=== PATIENT | male | born 1945 | race Caucasian/White ===

== ENCOUNTER 2018-01-18 14:28 | Emergency (ER) | payer MEDICARE ==
--- OUTSIDE RECORDS SUMMARY | 2018-01-18 14:34 | XMS REPORT ---
:1945 External Reference #:[id number] Author Organization Amari Mclaughlin M.D., [facility] Address [address] [address] [place] [address] Phone [phone] Care Team Providers Name Role Phone Azael Brooks MD Care Team Information [employer] Up Mechanic Unavailable Azael Brooks MD Primary Care Physician Unavailable Payers Type Date Identification Numbers Payment Provider Subscriber Commercial Effective: Policy Number: BS Medicare Brandon Hopell 2013 [id number] PayID: [id number] [address] [address] [place] [address] Commercial Policy Number: [id number] Medicare Brandon [employer] Number: [id number] [address] [address] PayID: [id number] [place] [address] Problems Date Description Provider Status Onset: 11/17/2016 Excess skin of eyelid Amari Mclaughlin M.D. Active Onset: 11/18/2015 Venous retinal branch occlusion Amari Mclaughlin M.D. Active Onset: 11/12/2014 Vitreous degeneration Ravindra Alatorre O.D. Active Onset: 08/05/2014 Incipient senile cataract Amari Mclaughlin M.D. Active Onset: 07/31/2013 Retinal vascular occlusion Amari Mclaughlin M.D. Active Family History Date Family Member(s) Problem(s) Comments Father Cancer Mother Noncontributory Social History Type Date Description Comments Smoking Patient has never smoked Allergies, Adverse Reactions, Alerts Date Description Reaction Status Severity Comments 07/31/2013 Sulfa active 09/09/2013 Sulfa Antibiotics active Medications Medication Date Status Form Strength Qnty SIG Indications Ordering Provider Lisinopril Active Tablets Unknown 00 Pravastatin Active Tablets Unknown 00 Glucosamine 00/00/00 Active Tablets Unknown Chondroitin 00 Alprazolam Active Tablets Unknown 00 Aspir-[address] 81mg once Unknown 00 per day po Ibuprofen Active Capsules Unknown Multi Complete Active Capsules Unknown 00 Vital Signs Date Vital Result Comment 11/19/2017 Intraocular Pressure Right Eye 15 mmHg Intraocular Pressure Left Eye 15 mmHg 11/17/2016 Intraocular Pressure Right Eye 15 mmHg Intraocular Pressure Left Eye 16 mmHg 11/18/2015 Intraocular Pressure Right Eye 18 mmHg Intraocular Pressure Left Eye 18 mmHg 08/05/2014 Intraocular Pressure Right Eye 12 mmHg Intraocular Pressure Left Eye 14 mmHg 07/31/2013 Intraocular Pressure Right Eye 18 mmHg Intraocular Pressure Left Eye 18 mmHg Results Description No Information Procedures Date CPT Code Description Status 12/20/2017 34871 Fundus Photography W/Interpretation & Report Completed 12/20/2017 24075 Ophthalmoscopy Subsequent Completed 12/20/2017 91993 Eye Exam Est Intermediate Completed 12/17/2017 44389 Visual Field Exam Extended, Unilateral Or Bilateral Completed 11/19/2017 66826 Refraction Completed 11/19/2017 27922 Eye Exam Est Intermediate Completed 11/17/2016 10850 Ophthalmoscopy Subsequent Completed 11/17/2016 63875 Eye Exam Est Intermediate Completed 11/18/2015 61318 Fundus Photography W/Interpretation & Report Completed 11/18/2015 75542 Eye Exam Est Comprehensive Completed 11/26/2014 84191 Ophthalmoscopy Subsequent Completed 11/26/2014 35082 Eye Exam Est Intermediate Completed 11/12/2014 03470 Ophthalmoscopy Initial Completed 11/12/2014 89729 Eye Exam Est Intermediate Completed 08/05/2014 33729 Eye Exam Est Comprehensive Completed 08/05/2014 31744 Oct Retina Completed 08/05/2014 74148 Ophthalmoscopy Subsequent Completed 07/31/2013 72611 Fundus Photography W/Interpretation & Report Completed 07/31/2013 59370 Ophthalmoscopy Subsequent Completed 07/31/2013 10563 Eye Exam Est Comprehensive Completed 07/10/2011 64349 Fundus Photography W/Interpretation & Report Completed 07/10/2011 57844 Ophthalmoscopy Subsequent Completed 07/10/2011 89479 Eye Exam Est Comprehensive Completed 12/09/2010 61898 Eye Exam Est Intermediate Completed 12/09/2010 33322 Ophthalmoscopy Initial Completed 12/09/2010 79988 Fundus Photography W/Interpretation & Report Completed 07/08/2010 49619 Eye Exam Est Comprehensive Completed 03/18/2008 89582 Eye Exam Est Comprehensive Completed 02/27/2007 41142 Ophthalmoscopy Subsequent Completed 02/27/2007 82917 Eye Exam Est Comprehensive Completed 02/05/2006 10858 Ophthalmoscopy Initial Completed 02/05/2006 85493 Refraction Completed 02/05/2006 85839 Eye Exam New Comprehensive Completed Encounters Type Date Location Provider CPT E/M Dx Office Visit 12/17/2017 10:45a [place] [address] H02.831 H02.834 Plan of Care 12/20/2017 - Amari Mclaughlin M.D.H02.831 Dermatochalasis of right upper yaycciL43.834 Dermatochalasis of left upper yqxslsM56.8312 Tributary (branch) retinal vein occlusion, right eye, qvxuncL50.093 Other age-related incipient cataract, aiijiukkiG97.813 Vitreous degeneration, hexjthtmiW37.372 Puckering of macula, left eyeFollow up:1 yr
[2018-01-18 14:43] VITALS: BP 159/77
--- NOTE | 2018-01-18 15:34 | RAD ---
Indication: LEFT hip pain chronic increasing over the last 2 days. Fall onto LEFT hip 2 days ago. Comparison: March 22, 2017 CT. Technique: Supine AP pelvis and AP and frog-leg lateral views LEFT hip. Report: The LEFT hip is normally located. No proximal LEFT femur or pelvic fracture or pelvic joint diastases. Mild bilateral axial joint space narrowing of the hips. Calcific tendinopathy at the LEFT greater than RIGHT gluteus sherif insertion sites and hamstring tendon origins. Pelvic phleboliths noted. Unremarkable soft tissue contours. IMPRESSION: #. No radiographic evidence for LEFT hip fracture. #. Mild axial joint space narrowing at both hips indicating thinning of the hyaline articular cartilage. #. Hip abductor and hamstring tendon origin calcified tendinopathy.
[2018-01-18] MEDS ORDERED: Dexamethasone IV* 4 MG/ML 1 ML (4 MG) IV SLOW PU ONE (15:39)
[2018-01-18] MEDS ORDERED: Ketorolac INJ* 60 MG/2 ML VIAL IM ONE (15:39)
--- NOTE | 2018-01-18 15:44 | UC ---
Lower Extremity/Ankle HPI - HPI Summary HPI Summary: The patient is a 72 y/o M presenting to [facility] with a chief complaint of pain in his left hip starting over the last two days. He normally is able to walk 10 miles a day, but he had fallen two days ago onto his left side, and the pain has persisted since. He is able to ambulate but the pain has been increasing. The pain is currently rated 8/10 in severity. He denies hitting his head when he fell, pain in his neck, and LOC. - History of Current Complaint Chief Complaint: UCLowerExtremity Stated Complaint: L HIP INJURY Time Seen by Provider: 01/18/18 14:53 Hx Obtained From: Patient Onset/Duration: Sudden Onset, Lasting Days - two days, Still Present Pain Intensity: 8 Pain Scale Used: 0-10 Numeric Aggravating Factor(s): Ambulation Alleviating Factor(s): Nothing Able to Bear Weight: Yes Legs: 1 - pain in left hip - Allergies/Home Medications Allergies/Adverse Reactions: Allergies Allergy/AdvReac Type Severity Reaction Status Date / Time Sulfa (Sulfonamide Allergy Hives Verified 01/18/18 14:43 Antibiotics) PMH/Surg Hx/FS Hx/Imm Hx Cardiovascular History: Hypertension Respiratory History: Asthma GI/ History: Other Other GI/ History: Diverticulosis - Surgical History Surgical History: Yes Surgery Procedure, Year, and Place: LAP HUMZA, PARATHYROID - Family History Known Family History: Negative: Cardiac Disease, Hypertension, Diabetes - Social History Alcohol Use: None Substance Use Type: None Smoking Status (MU): Never Smoked Tobacco Review of Systems Musculoskeletal: Other: - pain the left hip Neurological: Other - NEGATIVE: injury to head or neck, LOC All Other Systems Reviewed And Are Negative: Yes Physical Exam - Summary Physical Exam Summary: VITAL SIGNS: Reviewed. GENERAL: Patient is a well-developed and nourished male who is lying comfortable in the stretcher. Patient is not in any acute respiratory distress. HEAD AND FACE: Normocephalic EYES: PERRLA, EOMI x 2. EARS: Hearing grossly intact. MOUTH: Oropharynx within normal limits. NECK: Supple, trachea is midline, no adenopathy, no JVD, no carotid bruit. CHEST: Symmetric, no tenderness at palpation LUNGS: Clear to auscultation bilaterally. No wheezing or crackles. CVS: Regular rate and rhythm, S1 and S2 present, no murmurs or gallops appreciated. ABDOMEN: Soft, non-tender. Bowel sounds are normal. No abdominal abnormal pulsations. EXTREMITIES: Full ROM in all major joints except decreased ROM in the left hip secondary to pain, no edema, no cyanosis or clubbing, no hematoma, no deformities NEURO: Alert and oriented x 3. No acute neurological deficits. Speech is normal and follows commands. SKIN: Dry and warm Triage Information Reviewed: Yes Vital Signs: Initial Vital Signs Temp 98.1 F 01/18/18 14:39 Pulse 83 01/18/18 14:39 Resp 19 01/18/18 14:39 BP 159/77 01/18/18 14:39 Pulse Ox 100 01/18/18 14:39 Vital Signs Reviewed: Yes Diagnostics - Radiology Left Hip/Pelvis XR Xray Interpretation: No Acute Changes - 1. No radiographic evidence for LEFT hip fracture. 2. Mild axial joint space narrowing at both hips indicating thinning of the hyaline articular cartilage. 3. Hip abductor and hamstring tendon origin calcified tendinopathy. [facility] physician has reviewed this report. Radiology Interpretation Completed By: Radiologist Lower Extremity Course/Dx - Course Course Of Treatment: Patient is a 72-year-old male who presents to the urgent care with left hip pain. Patient is able to ambulate with associated pain. X- ray of the left hip and pelvis is negative for acute fracture or dislocation. Patient was given Toradol and Decadron for the pain. Patient will be discharged home with follow-up with primary care physician, and he will be given a prescription for Burns and Medrol Dosepak. Patient was also advised to apply ice intermittently with warm compresses. The patient understands and agrees. He is hemodynamically stable alert and oriented 3. - Differential Dx/Diagnosis Provider Diagnoses: Left hip pain Discharge - Sign-Out/Discharge Documenting (check all that apply): Patient Departure - Patient will be discharged home. All imaging exams completed and their final reports reviewed: Yes - Discharge Plan Condition: Improved Disposition: HOME Prescriptions: HYDROcodone/ACETAMIN 5-325 MG* [Burns 5-325 TAB*] 1 tab PO Q6H PRN #15 tab MDD 4 PRN Reason: Pain methylPREDNISolone [Medrol Dosepak 4 MG*] 0 mg PO .SEE GUICHO INSTRUCTION #1 guicho Patient Education Materials: Arthralgia (ED), Hip Pain (ED) Referrals: Mary Cuadra MD [Primary Care Provider] - Additional Instructions: Take medications as instructed and adhere to plan Take Acetaminophen or ibuprofen for pain or fever Increase your fluid intake Return to the or go to the emergency department if symptoms worsen Follow-up with primary care physician in next 2-3 days - Billing Disposition and Condition Condition: IMPROVED Disposition: Home - Attestation Statements Document Initiated by Michael: Yes Documenting Scribe: Carole Castro Provider For Whom Michael is Documenting (Include Credential): Dr. Azael Isidro MD Scribe Attestation: Carole Lazo scribed for Dr. Azael Isidro MD on 01/18/18 at 1813. Scribe Documentation Reviewed: Yes Provider Attestation: The documentation as recorded by the Carole alarcon accurately reflects the service I personally performed and the decisions made by me, Dr. Azael Isidro MD
[2018-01-18] MEDS ORDERED: Dexamethasone IV* 4 MG/ML 1 ML (4 MG) IM ONE (16:03)
== END 2018-01-18 16:14 | disposition home or self-care (01) ==
LOC: UCEAST 14:28
DX: M25.552 Pain in left hip (principal); I10 Essential (primary) hypertension; J45.909 Unspecified asthma, uncomplicated
CPT/HCPCS: 96372; 99212; G0463; J1100; J1885